=== PATIENT | male | born 1945 | race Caucasian/White ===

== ENCOUNTER 2018-02-27 05:56 | Day surgery (SDC) | payer MEDICARE, OTHER ==
[2018-02-27] MEDS ORDERED: DIPRIVAN 200 MG/20 ML IV ONE (05:57)
[2018-02-27] MEDS ORDERED: Lactated Ringers 1,000 ML IV ONE (06:38)
[2018-02-27] MEDS ORDERED: Lactated Ringers 1,000 ML IV SCH (07:30)
[2018-02-27 09:26] VITALS: BP 115/73; PULSE 62; O2SAT 95
--- NOTE | 2018-02-27 10:49 | OP ---
SURGERY DATE/TIME: 02/27/2018 0755 PREOPERATIVE DIAGNOSIS: Screening exam. POSTOPERATIVE DIAGNOSIS: Normal colon. PROCEDURE: Colonoscopy. SURGEON: Dr. Hernandes. ANESTHESIA: MAC. Medications given by anesthesia department. HISTORY: The patient is a 73 year-old white male patient presenting now for screening colonoscopy. He was appraised of the risks of the procedure including the risk of perforation, phlebitis, untoward reaction to medication, bleeding and missed lesions. The patient verbalized his understanding and desired to have the procedure performed. DESCRIPTION OF PROCEDURE: The patient was given the medications by the anesthesia department. He had continuous pulse oximetry, ECG monitoring, intermittent blood pressure monitoring and tidal CO2 monitoring during the examination. He was placed in the left lateral decubitus position. A digital rectal examination was performed and revealed normal anal sphincter tone, no masses and slightly enlarged prostate but smooth. The flexible Olympus pediatric colonoscope was used to intubate the rectum. A view of the colon was developed sequentially to the cecum. Upon insertion and withdrawal, including a retroflex view in the rectum, no mucosal lesions were encountered. The scope was removed from the patient who tolerated the procedure well and was sent back to OP recovery in good condition. The prep was noted to be fair to good.
== END 2018-02-27 09:33 | disposition home or self-care (01) ==
LOC: SDC 05:56
PROVIDERS: ATTEND Family Medicine
DX: Z12.11 Encounter for screening for malignant neoplasm of colon (principal); K21.9 Gastro-esophageal reflux disease without esophagitis; Z85.828 Personal history of other malignant neoplasm of skin
CPT/HCPCS: 94250; G0121; 99100; J2704

== ENCOUNTER 2023-03-18 06:00 | Day surgery (SDC) | payer MEDICARE, OTHER ==
[2023-03-18] MEDS ORDERED: Decadron 4 MG INJ ONE ×2 (06:05→08:07)
[2023-03-18] MEDS ORDERED: DIPRIVAN 200 MG/20 ML IV ONE (06:05)
[2023-03-18] MEDS ORDERED: Xylocaine-Mpf 2% 5 Ml Vial ONE (06:05)
[2023-03-18] MEDS ORDERED: Zofran 4 MG/2 ML VIAL ONE (06:05)
[2023-03-18] MEDS ORDERED: Quelicin Fliptop 200 MG/10 ML ONE (06:12)
[2023-03-18] MEDS ORDERED: OFIRMEV 100 ML IV ONE (06:16)
[2023-03-18] MEDS ORDERED: Marcaine Mpf 0.5% Vial 30 Ml ONE (06:25)
[2023-03-18] MEDS ORDERED: Xylocaine 1% Vial 30 ML PF IJ ONE (06:25)
[2023-03-18] MEDS ORDERED: CEFAZOLIN 2 GM-D5W BAG** 2 GM/50 ML ML IV SCH (06:30)
[2023-03-18] MEDS ORDERED: Lactated Ringers 1,000 ML IV SCH (06:30)
[2023-03-18 06:35] LABS: Hematocrit 47.5 % (42-50); Hemoglobin 15.4 g/dL (12.5-18.0); Mean Cell Volume 92.1 fL (78-100); Mean Corpuscular Hemoglobin 29.8 pg (26-32); Mean Corpuscular Hgb Concent. 32.4 g/dL (32-36); Mean Platelet Volume 10.6 fL (7.5-11.0); Platelet Count 207 x10^3/uL (150-450); Red Blood Count 5.16 x10^6/uL (4.1-5.6); Red Cell Distribution Width 13.1 % (11.5-14.0); White Blood Count 7.3 x10^3/uL (4.0-10.5)
[2023-03-18 06:58] LABS: ALBUMIN 4.2 g/dL (3.5-5.0); ALKALINE PHOSPHATASE 66 U/L (38-126); ANION GAP 12.3 MEQ/L (5-15); BLOOD UREA NITROGEN 16 mg/dL (9-20); CHLORIDE 106 mmol/L (98-107); Calcium 8.5 mg/dL (8.4-10.2); Carbon Dioxide 28 mmol/L (22-30); Creatinine 1 0.73 mg/dL (0.66-1.25); EST GLOMERULAR FILTRATION RATE > 60.0 ML/MIN; Glucose 115 mg/dL (74-106); Potassium 3.8 mmol/L (3.5-5.1); SGOT/AST 35 U/L (17-59); SGPT/ALT 24 U/L (0-50); SODIUM 142 mmol/L (137-145); Total Protein 7.2 g/dL (6.3-8.2)
[2023-03-18 06:59] LABS: INR 0.99 (0.8-3.0); PROTIME 10.8 SECONDS (9.4-12.5); PTT 26.1 SECONDS (25.1-36.5)
[2023-03-18] MEDS ORDERED: SUBLIMAZE 100 MCG/2 ML ONE (07:56)
[2023-03-18] MEDS ORDERED: Versed 2 MG/2 ML Injection ONE (07:58)
[2023-03-18] MEDS ORDERED: BREVIBLOC 100 MG/10 ML IV ONE (08:00)
[2023-03-18] MEDS ORDERED: Zemuron 100 MG/10 ML ONE ×2 (08:09→09:05)
[2023-03-18] MEDS ORDERED: BRIDION 200MG/2ML IV ONE (09:30)
--- NOTE | 2023-03-18 10:04 | XRAY ---
Indication: Right 1st MTP arthrodesis, 2nd Blu osteotomy, plantar plate repair, and hammertoe correction. Intraoperative fluoroscopy provided for 1 minute 31 seconds. 17 digital spot images submitted for interpretation ultimately demonstrates 1st MTP arthrodesis, 2nd toe fusion, and 2nd metatarsal head Blu osteotomy all with intact hardware. Correlate with intraoperative findings/report.
[2023-03-18 11:33] VITALS: RESP 16
[2023-03-18 12:24] VITALS: BP 120/81; PULSE 58; TEMP 97.6; O2SAT 94
--- NOTE | 2023-03-18 15:41 | XRAY ---
One minute and 31 seconds of fluoroscopy was used in surgery for a right 1st MTP arthrodesis, 2nd Blu osteotomy, plantar plate repair, and hammertoe correction.
--- NOTE | 2023-03-21 13:56 | OP ---
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 3) Cross over toe. 4) Hammer toe right foot 2, 3, 4 and 5. 5) Plantar plate tear. 6) Metatarsal deformity. 7) Right foot pain. 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 3) Cross over toe. 4) Hammer toe right foot 2, 3, 4 and 5. 5) Plantar plate tear. 6) Metatarsal deformity. 7) Right foot pain. PROCEDURES: 1) First metatarsophalangeal joint arthrodesis. 2) Second metatarsal osteotomy/Blu osteotomy. 3) Plantar plate repair. 4) Hammer toe correction with proximal and distal interphalangeal joint arthrodesis digit #2. 5) Tenotomy digit #3 right foot. SURGEON: Rudi Avilez DPM. DRAFTER HEATING AND VENTILATING: None. ANESTHESIA: General plus a local block postoperatively. HEMOSTASIS: Ankle tourniquet set to 250 mm of Mercury for 71 total tourniquet minutes. ESTIMATED BLOOD LOSS: 5 cc. MATERIALS: Pablo ALPS 0 degree first metatarsophalangeal plate with a 3.4 x 32 VPC screw for the interfragmentary, for the Blu osteotomy 2.0 x 16 headed with a #2 MaxBraid for plantar plate repair and 2.5 x 40 VPC screw for second hammer toe, 4-0 Monocryl, 3-0 Nylon. INJECTABLES: 30 cc of 1:1 mixture of 1% lidocaine plain and 0.5% bupivacaine plain injected in an ankle block-type fashion. INDICATIONS FOR PROCEDURE: Dionte is a very pleasant 78-year-old male who we recently met through our service for a significant amount of pain to his right foot with ambulation and shoe gear. The patient had a significant cross over toe. The patient indicated that I was the fourth person in his whole life to see his feet secondary to the embarrassment that he had in regards to the cross over toe and the pain that he had associated with his feet. The patient indicates that he has been waiting a very long time to proceed secondary to the pain that he has been experiencing. He is looking forward to the procedure to correct the position of his big toe as well as the cross over toe. The patient understands understands all risks, benefits and complications of surgical intervention at this time including but not limited to infection, hematoma, seroma, possibility of delayed wound healing, nonwound healing, possibility of failure of bone healing and painful hardware, possible need for removal of hardware and possible need for repeat surgical intervention at a later date. No guarantees were provided as to the outcome of surgical intervention. Plenty of time was allowed for the patient to ask questions which were answered to his apparent satisfaction. It is at this time we decided to proceed. DESCRIPTION OF PROCEDURE AND FINDINGS: The patient was brought into the OR and placed on the OR table in the supine position. At this time general anesthesia was administered until the patient was sedated. A well-padded ankle tourniquet was applied to the patient's right ankle and the tourniquet was set to 250 mm of Mercury. At this time the right foot was prepped and draped in the typical sterile fashion and lowered onto the surgical field. At this time an Esmarch was utilized to exsanguinate the foot. The tourniquet was inflated to 250 mm of Mercury. At this time linear incision was made just medially to the extensor hallucis longus tendon which was carried down making sure not the damage any neurovascular structures along the way releasing the extensor hallucis longus tendon and retracting it laterally. The capsule was then dissected and the joint was inspected. There was significant amount of osteoarthritis in the first metatarsophalangeal joint particularly plantar medial and dorsal. At this time cup and cone reamers were utilized to remove the cartilage from the first metatarsophalangeal joint in toto. Copious amounts of sterile saline were utilized to flush the site. A 2 mm drill was utilized to fenestrate the surfaces and the position was found under light fluoro and pinned in the appropriate position. At this time ALPS 0 degree first metatarsophalangeal joint plate was introduced locking down the distal aspects of the plate first and then securing the eccentric screw into the eccentric slot. Once nearly engaged with the plate, a 3.4 x 32 mm VPC screw was introduced in orientation from a distal medial to proximal lateral orientation. Alternating compression was provided to these two sites getting great fixation at the first metatarsophalangeal joint this was checked under multiple views. The remaining locking and nonlocking screws were introduced and position was assessed and deemed to be adequate and in appropriate alignment. At this time attention was directed to the second digit and the second metatarsophalangeal joint. A linear incision was carried down to the extensor digitorum longus tendon which a delengthening osteotomy was performed. The capsule of the second metaphalangeal joint was identified and resected utilizing mediolateral J stroke. Following this a Blu osteotomy was carried out and a 2.0 x 16 mm headed screw was introduced checking under fluoroscopy making sure not to be exiting the metatarsal head this was shifted proximally and medially to influence the position of the toe. At this time the overhang of the cartilage at the second metaphalangeal joint was rongeured to a smooth surface. At this time the plantar plate repair took place utilizing two drill holes over the metatarsal head to the plantar aspect of the first metaphalangeal joint where Gurinder needles were introduced to the plantar aspect of the first metaphalangeal joint and then a Veras was utilized to retrieve the 2-0 MaxBraid through the plantar aspect of the proximal phalanx this was tied off with tension being exaggerated in a lateral position but once released was held really parallel to the hallux. At this time both the distal interphalangeal joint and proximal interphalangeal joint were resected of the second toe and the position was deemed to be adequate once retrograded and then anterograded down the proximal phalanx. A 2.5 x 40 VPC screw was introduced into the second digit holding the position adequately. At this time due to a significant amount of contracture to digits #3, 4 and 5, a flexor tenotomy was performed on 3 to prevent encroachment of the third toe underneath the second and leaving the repair construct this occurred without incident. Once this was performed decision was made to not proceed with flexor tenotomy 3, 4 and 5. Copious amounts of sterile saline were utilized to flush the surgical site. The tourniquet was let down at a total of 71 total tourniquet minutes. 4-0 Monocryl was utilized to repair the capsule. The subcutaneous skin edges were repaired in a simple interrupted buried-type fashion and then 4-0 Nylon was utilized in a horizontal mattress-type fashion to coapt the subcutaneous skin edges. A dressing consisting of Betadine, Adaptic, 4x4, Kerlix and FRANCK was applied to the patient's right lower extremity with the foot orthogonal relative to longitudinal axis of the leg. The patient was reversed from anesthesia and returned to the postoperative anesthesia care unit with vital signs stable and vascular status intact. The patient handled the anesthesia as well as the procedure without significant complication. Postoperative orders as indicated in the patient's discharge chart.
== END 2023-03-18 12:45 | disposition home or self-care (01) ==
LOC: SDC 06:00
PROVIDERS: ATTEND Podiatrist Foot & Ankle Surgery
DX: M20.11 Hallux valgus (acquired), right foot (principal); M19.071 Primary osteoarthritis, right ankle and foot; M20.41 Other hammer toe(s) (acquired), right foot; M79.671 Pain in right foot; M20.5X9 Other deformities of toe(s) (acquired), unspecified foot; Z79.899 Other long term (current) drug therapy; Z79.01 Long term (current) use of anticoagulants
CPT/HCPCS: 28232; 28285; 28308; 28585; 28750; 36415; 73630; 76000; 80053; 85027; 85610; 85730; 93005; C1713; 84484; J0330; J0690; J1100; J2001; J2250; J2405; J2704; J3010